=== PATIENT | female | born 1975 | race Hispanic/Latino ===

== ENCOUNTER 2018-08-26 21:43 | Emergency (ER) | payer BC ==
[~2018-08-26 21:43] MED LIST: FERR325T22 PO
== END 2018-08-26 23:35 | disposition home or self-care (01) ==
LOC: EDH 21:43
DX: R07.89 Other chest pain (principal); J09.X2 Influenza due to identified novel influenza A virus with other respiratory manifestations; Z90.710 Acquired absence of both cervix and uterus; Z90.49 Acquired absence of other specified parts of digestive tract; Z98.890 Other specified postprocedural states
CPT/HCPCS: 71045; 87804; 93005; 94761

== ENCOUNTER 2019-10-27 14:18 | Emergency (ER) | payer BC ==
[2019-10-27] MEDS ORDERED: MECLIZINE HCL 25 MG TABLET ONE (14:50)
[2019-10-27 14:51] LABS: HCG,QUAL RESULT NEGATIVE (NEGATIVE)
[2019-10-27 14:56] LABS: APPEARANCE,URINE Clear (CLEAR); BILIRUBIN,URINE Negative (NEGATIVE); COLOR,URINE Yellow (YELLOW); GLUCOSE, URINE (UA) Negative (NEGATIVE); KETONES,URINE Negative (NEGATIVE); LEUKOCYTE ESTERASE ,URINE Negative (NEGATIVE); NITRATE,URINE Negative (NEGATIVE); OCCULT BLOOD,URINE Negative (NEGATIVE); PH,URINE 5.5 (5.0-8.0); PROTEIN,URINE Negative (NEGATIVE); UROBILINOGEN,URINE 0.2 mg/dL (0.2-1.0)
== END 2019-10-27 16:00 | disposition home or self-care (01) ==
LOC: EDH 14:18
DX: H81.399 Other peripheral vertigo, unspecified ear (principal); F45.8 Other somatoform disorders
CPT/HCPCS: 81003; 81025; 93005

== ENCOUNTER 2023-01-09 19:12 | Emergency (ER) | payer BC ==
[~2023-01-09] VITALS: Ht 154.9 cm; Wt 152.9 kg
[2023-01-09 19:29] LABS: BASOPHILS % (AUTO) 0.7 % (0.0-5.0); HEMATOCRIT 38.1 % (36-48); LYMPHOCYTES % (AUTO) 36.4 % (21.0-51.0); MEAN CORPUSCULAR HEMOGLOBIN 29.5 pg (27.0-33.0); MEAN CORPUSCULAR HGB CONC 32.3 g/dL (32.0-36.0); MEAN CORPUSCULAR VOLUME 91.4 fL (79-99); MONOCYTES % (AUTO) 7.8 % (3.0-13.0); NEUTROPHILS % (AUTO) 53.6 % (40.0-77.0); PLATELET COUNT (AUTO) 334 K/uL (130-400); RED BLOOD CELL COUNT(AUTO) 4.17 MIL/uL (4.00-5.50); RED CELL DISTRIBUTION WIDTH 13.3 % (11.0-15.5); WHITE BLOOD COUNT (AUTO) 10.3 K/uL (4.8-10.8)
[2023-01-09 19:59] LABS: CREATININE 0.9 mg/dL (0.5-1.5); POTASSIUM 3.8 mmol/L (3.5-5.1)
[2023-01-09 20:04] LABS: ALBUMIN 3.4 g/dL (3.5-5.0); TOTAL PROTEIN, SERUM 7.5 g/dL (6.0-8.3)
[2023-01-09 20:15] VITALS: BP 148/74
== END 2023-01-09 20:34 | disposition home or self-care (01) ==
LOC: EDH 19:12
DX: R07.89 Other chest pain (principal); Z90.710 Acquired absence of both cervix and uterus; Z90.49 Acquired absence of other specified parts of digestive tract
CPT/HCPCS: 36415; 71045; 80053; 84484; 85025; 93005

== ENCOUNTER 2025-08-15 21:08 | Emergency (ER) | payer BC, OTHER ==
[~2025-08-15] VITALS: Ht 154.9 cm; Wt 166.9 kg
--- NOTE | 2025-08-15 21:25 | ERN ---
General Chief Complaint: Knee Injury/Swelling Stated Complaint: C/O PAIN TO RT KNEE AFTER INJURY A WK AGO Time Seen by MD: 21:11 Source: patient History of Present Illness Initial Comments 50-year-old morbidly obese female who experienced twisting her foot while walking at work and immediately felt a pop in her knee. Since that time her knee has popped twice more and it is becoming increasingly painful for her to walk on it. It is also more swollen. She is taking ibuprofen for pain and treating it with ice warm towels and keeping it elevated at night. Allergies: Coded Allergies: No Known Drug Allergies (Unverified Allergy, Unknown, 12/13/16) Home Meds Reported Medications Ferrous Sulfate (Ferrous Sulfate) 325 Mg Tablet, 325 MG PO DAILY, TAB 12/14/16 Past Medical History Past Medical History: No Pertinent History Past Surgical History: Hysterectomy, Cholecystectomy, Other Surgical History Other: BACK SX ROS Dictation Review of systems is negative beyond the right knee pain. Physical Exam Extremities Comment Patient with right knee pain on the lateral collateral ligaments as well as anterior patella. Posterior and anterior drawer signs are negative. No obvious medial or lateral collateral ligament laxity; although patient did experience pain when examining those ligaments by abducting an abducting the patient's right knee. Results Laboratory and Microbiology Lab and Micro Result Patient's plain films are negative for fracture or dislocation of her right knee. They do show arthritic changes and a decrease in the joint space. Labs Reviewed?: Yes MDM I will start the workup with plain films. Plain films are negative I placed the patient's right knee in a knee brace and discharged her from the ED. ED Course Orders Procedure Category Date Status Time Knee 4+Vws Rt RAD 08/15/25 Resulted 21:16 Vital Signs Date Time Temp Pulse Resp B/P (MAP) Pulse Ox O2 Delivery O2 Flow Rate FiO2 08/15/25 21:39 98.1 85 16 130/70 98 Room Air* 0 21 08/15/25 21:10 97.7 89 20 135/71 98 Room Air DX & DISP Disposition: Discharge Departure Impression: Primary Impression: Arthralgia of right knee Additional Impression: Acute pain of right knee Condition: Stable Additional Instructions: You do not have any fractures or dislocations of your right knee. You do have many arthritic changes in the plain films. I think you have a soft tissue injury. You need to go see a knee surgeon or orthopedic surgeon and possibly an MRI to rule out ligamentous injury. Please continue to do what you are doing with icing and heating an elevating and ibuprofen for pain. Referrals: SELF,REFERRAL (PCP) SERGIO HYDE MD Aug 15, 2025 21:25
[2025-08-15 21:39] VITALS: BP 130/70; PULSE 85; RESP 16; TEMP 98.1; O2SAT 98
--- NOTE | 2025-08-15 22:06 | HMCIMG ---
EXAM: XR Knee, 3 Views. CLINICAL HISTORY: 50-year-old female with pain for 1 week. COMPARISON: None provided. FINDINGS: BONES: No acute fracture or focal osseous lesion. JOINTS: No dislocation. There is moderate tricompartmental joint space narrowing. Moderate osteoarthritis. SOFT TISSUES: The soft tissues are unremarkable. IMPRESSION: 1. No acute osseous abnormality. 2. Moderate tricompartmental joint space narrowing and osteoarthritis. /[place]
--- NOTE | 2025-08-15 22:16 | NUR ---
KNEE BRACE APPLIED PER MD REQUEST
== END 2025-08-15 22:36 | disposition home or self-care (01) ==
LOC: EDH 21:08
DX: M25.561 Pain in right knee (principal); E66.01 Morbid (severe) obesity due to excess calories; Z90.49 Acquired absence of other specified parts of digestive tract; Z90.710 Acquired absence of both cervix and uterus; X58.XXXA Exposure to other specified factors, initial encounter; Y93.01 Activity, walking, marching and hiking; Y92.89 Other specified places as the place of occurrence of the external cause; Y99.8 Other external cause status
CPT/HCPCS: 29530; 73564; 99283